=== PATIENT | female | born 1990 | race Caucasian/White ===

== ENCOUNTER 2020-11-13 06:13 | Day surgery (SDC) | payer OTHER, SELFPAY ==
[~2020-11-13] VITALS: Ht 167.6 cm; Wt 157.9 kg
[2020-11-13] MEDS ORDERED: MIDAZOLAM 5 MG/5 ML VIAL ONE (07:30)
[2020-11-13] MEDS ORDERED: diphenhydrAMINE 50 MG/ML VIAL ONE (07:30)
[2020-11-13] MEDS ORDERED: fentaNYL citrate 0.05 MG/ML VIAL ONE (07:30)
[2020-11-13] MEDS ORDERED: MIDAZOLAM 2 MG/2 ML VIAL IVP ONE (08:45)
[2020-11-13] MEDS ORDERED: diphenhydrAMINE 50 MG/ML VIAL IVP ONE (08:45)
[2020-11-13] MEDS ORDERED: fentaNYL citrate 0.05 MG/ML VIAL IVP ONE (08:45)
== END 2020-11-13 08:25 | disposition home or self-care (01) ==
LOC: MOR 06:13 → MMU 06:14 → MOR 08:25
PROVIDERS: ATTEND Internal Medicine Gastroenterology
DX: R10.13 Epigastric pain (principal); K80.81 Other cholelithiasis with obstruction; K44.9 Diaphragmatic hernia without obstruction or gangrene; Z80.0 Family history of malignant neoplasm of digestive organs; K20.90 Esophagitis, unspecified without bleeding; Z79.899 Other long term (current) drug therapy
CPT/HCPCS: 43239; 81025; 87426; 88305; 88312; 88313; 88342; J1200; J2250; J3010